=== PATIENT | male | born 1955 | race Two or more races ===

== ENCOUNTER 2020-07-15 18:21 | Inpatient (IN) | payer MEDICAID, OTHER ==
[~2020-07-15] VITALS: Ht 175.3 cm; Wt 91.9 kg
[2020-07-15 23:48] LABS: Basophils # (auto) 0 10 ^3/uL (0-0.2); Lymphocytes # (auto) 0.4 10 ^3/uL (0.4-5.4)
[2020-07-15 23:50] LABS: Basophils % (auto) 0.1 % (0.0-2.0); Eosinophils # (auto) 0 10 ^3/uL (0-0.8); Eosinophils % (auto) 0.3 % (0.0-7.0); Hematocrit 30.6 % (41.0-53.0); Hemoglobin 9.9 g/dL (13.5-17.5); Lymphocytes % (auto) 2.6 % (10.0-50.0); Mean Corpuscular Hemoglobin 26.5 pg (28.0-32.0); Mean Corpuscular Hgb Conc. 32.4 g/dL (32.0-36.0); Mean Corpuscular Volume 81.9 fL (80.0-100.0); Monocytes # (auto) 1.1 10 ^3/uL (0-1.3); Neutrophils # (auto) 14.3 10 ^3/uL (1.6-8.6); Platelet Count (auto) 164 10^3/uL (140-450); Red Blood Cells 3.73 10^6/uL (4.5-5.90); Red Cell Distribution Width 16.3 % (11.8-14.3); White Blood Cell 15.9 10^3/uL (4.4-10.8)
[2020-07-16 00:03] LABS: INR 1.12 (0.9-1.15); Partial Thromboplastin Time 30.4 sec (23.0-31.2)
[2020-07-16 00:09] LABS: Alanine Aminotransferase 10 U/L (16-61); Albumin 2.9 g/dL (3.4-5.0); Anion Gap 14 (5-15); Aspartate Aminotransferase 9 U/L (15-37); BUN/Creatinine Ratio 6.1; Calcium 6.5 mg/dL (8.5-10.1); Carbon Dioxide 19 mmol/L (21-32); Chloride 105 mmol/L (98-107); GFR African American 4 mL/min; GFR Non-African American 3 mL/min; Glucose 78 mg/dL (74-106); Magnesium 1.9 mg/dL (1.6-2.6); Potassium 5.3 mmol/L (3.5-5.1); Sodium 138 mmol/L (136-145)
[2020-07-16 00:15] LABS: Alkaline Phosphatase 83 U/L (45-117); Bilirubin, Total 0.8 mg/dL (0.2-1.0); Total Protein 8.1 g/dL (6.4-8.2)
[2020-07-16 00:19] LABS: Blood Urea Nitrogen 105 mg/dL (7-18)
[2020-07-16] MEDS ORDERED: CALCIUM GLUC 4.65meq/50ml D5AE 50 ML IV ONE (10:15)
[2020-07-16] MEDS ORDERED: ALBUTEROL SULF 2.5 MG/0.5ML(0.5%) NEB SOLN NEB ONE (10:15)
[2020-07-16] MEDS ORDERED: SODIUM ZIRCONIUM CYCL 10 GM PAK PO ONE ×2 (10:15→21:00)
[2020-07-16] MEDS ORDERED: FUROSEMIDE 20 MG/2 ML VIAL IV ONE (10:15)
[2020-07-16] MEDS ORDERED: SODIUM BICARBONATE 8.4% INJ 50ML SYRINGE IV ONE (10:15)
[2020-07-16] MEDS ORDERED: ATORVASTATIN 20 MG TAB PO ONE (17:00)
[2020-07-16] MEDS ORDERED: ACETAMINOPHEN 325 MG TAB PO PRN (17:00)
[2020-07-16] MEDS ORDERED: MORPHINE SULF INJ 2 MG/ML SYRINGE 1ML IV PRN ×2 (17:00)
[2020-07-16] MEDS ORDERED: NITROGLYCERIN 0.4 MG SL TAB SL PRN (17:00)
[2020-07-16] MEDS ORDERED: CLOPIDOGREL BISULFATE 75 MG TAB PO ONE (17:00)
[2020-07-16] MEDS ORDERED: HYDROcodone-ACET 5/325MG TAB PO PRN (17:00)
[2020-07-16] MEDS ORDERED: DEXTROSE (50%) 50ML SYRG IV PRN (17:15)
--- NOTE | 2020-07-16 19:50 | NUR ---
Patient arrived to room 290B Transported by stretcher. Patient A&Ox4, respirations even and non-labored without s/s of distress at this time. Patient on RA, VS: T 97.5, UT 85, RR 20, 99% SpO2, 165/92, 0/10 pain. Noted multiple wounds to BLE and sacral area, pictures taken. Patient stated that he had a prior surgery to his feet in 2012 and the edema was normal for him. Dialysis catheter to the left upper chest. Patient unable to discuss his medications stating that he did not feel like talking about them. Oriented patient to the room, call light, bed, POC and to call for assistance. Patient verbalized understanding, bed alarm in place. Bed in lowest locked position with 3 side rails up, call light within reach. Will continue to monitor Q1hr and PRN.
[2020-07-16 20:00] VITALS: BP 165/92
--- NOTE | 2020-07-16 20:28 | NUR ---
Critical lab Potassium 5.8 Will notify physician.
--- NOTE | 2020-07-16 20:33 | NUR ---
Dawna hospitalist for critical lab
--- NOTE | 2020-07-16 20:50 | NUR ---
Hospitalist returned call Order received and implemented.
[2020-07-16] MEDS: InsuLIN REG 1unit/0.01ml Soln (100units/ml) SC SCH (22:00)
[2020-07-16] MEDS: ACCU-CHEK COMFORT CURVE STRIP VI SCH (22:13)
[2020-07-16 23:55] LABS: Cholesterol 83 mg/dL (< 200); HDL Cholesterol 19 mg/dL (40-59); LDL Cholesterol 47 mg/dL (< 100); Triglycerides 109 mg/dL (< 150)
[2020-07-17 05:31] VITALS: BP 168/93
--- NOTE | 2020-07-17 05:57 | NUR ---
[facility] Called Notified of dialysis this morning.
--- NOTE | 2020-07-17 06:59 | NUR ---
MRSA/wound culture swabs sent to lab
[2020-07-17] MEDS: ACCU-CHEK COMFORT CURVE STRIP VI SCH ×4 (07:00→21:52)
[2020-07-17] MEDS: InsuLIN REG 1unit/0.01ml Soln (100units/ml) SC SCH ×4 (07:00→21:52)
--- NOTE | 2020-07-17 07:20 | NUR ---
Opening Shift Note: Assumed care of patient. Patient asleep at this time. No S/S of distress/SOB or pain. ross lift operator at bedside. Bed in lowest locked position, side rails up x 2, call light within reach. Bed alarm activated for patient safety. Patient instructed on POC and to call for assist PRN, will continue to monitor for changes Q1hr and PRN.
[2020-07-17 09:00] VITALS: BP 139/85
[2020-07-17] MEDS ORDERED: SODIUM CHL 0.9% 1000 ML BAG XX ONE (09:30)
--- NOTE | 2020-07-17 10:28 | NUR ---
PATIENT OFF UNIT FOR MRI. NO DISTRESS NOTED.
[2020-07-17] MEDS ORDERED: CLOPIDOGREL BISULFATE 75 MG TAB PO ONE (10:45)
--- NOTE | 2020-07-17 11:05 | NUR ---
PATIENT BACK TO UNIT FROM MRI.
[2020-07-17] MEDS: ASPirin-EC 81 mg tab PO SCH (11:27)
--- NOTE | 2020-07-17 12:01 | NUR ---
Nutrition Consult for wounds Consider adding Nephrovite and Vitamin C 500 mg BID Consider CCHO 60g and renal standard diet Est energy needs kcal (20-22 kcal/kg BW 96.4kg) est protein needs 95-110g (1.3-1.5g/kg IBW 73kg r/t ESRD on HD, Obesity) Will monitor and reassess prn. Addendum: 07/17/20 at [address]4 [address]A H[address] Amended: Links added.
[2020-07-17 12:31] VITALS: BP 181/80
--- NOTE | 2020-07-17 12:50 | NUR ---
DIRECTOR MUSEUM OR ZOO AT BEDSIDE.
--- NOTE | 2020-07-17 13:00 | NUR ---
WOUND CARE NOTE: IN TO SEE PATIENT AT THIS TIME PER WOUND CARE CONSULT REQUEST. PATIENT ADMITTED TO [facility] WITH DIAGNOSIS OF ALOC. PATIENT NOTED TO HAVE WOUNDS UPON ADMIT. WOUNDS PHOTOGRAPHED AT THAT TIME BY BEDSIDE NURSE FOR REFERENCE. CURRENT MAXIMILIAN SCORE IS 16. SKIN/WOUND CARE PLAN IMPLEMENTED. PATIENT IS NOTED TO BE LETHARGIC, DIFFICULT TO AROUSE, UNABLE TO GIVE HISTORY. HE IS NOTED TO HAVE A COLLAGEN SCAR TO THE COCCYX. SKIN IS INTACT, PALE PINK SCAR. APPLIED OPTIFOAM GENTLE SACRAL DRESSING. RIGHT # 1 TOE AND LEFT PLANTAR HEEL HAVE DFU ULCERS NOTED. LEFT HEEL ULCER IS CALLOUSED CLOSED, LEFT OPEN TO AIR. RIGHT HALLUX HAS 2.5 X 5 CM OPEN DFU, NO DISCERNIBLE DEPTH. APPLIED THERAHONEY GAUZE, OPTIFOAM AG, WRAPPED WITH LARGE KERLIX, STOCKINETTE. RECOMMEND: FREQUENT TURN SCHEDULE Q 2 HOURS, PRN CONDITION PERMITS, WITH PRESSURE REDISTRIBUTION USING PILLOWS/WEDGES, BID/PRN APPLICATION WITH MOISTURE BARRIER CREAM, OPTIFOAM GENTLE SACRAL DRESSING; EOD/PRN DRESSING CHANGE TO RIGHT # 1 TOE WOUND, ELEVATION OF FOOT UP FOR EDEMA CONTROL, SKIN/WOUND CARE PLAN, CONTINUED MONITORING BY WOUND CARE TEAM. Addendum: 07/17/20 at 1910 by Leesa Wynn RN Amended: Links added.
--- NOTE | 2020-07-17 13:34 | NUR ---
PATIENT CLEANED AND TURNED AT THIS TIME. PATIENT ASSISTED WITH LUNCH.
[2020-07-17 15:23] LABS: Basophils # (auto) 0 10 ^3/uL (0-0.2); Basophils % (auto) 0.2 % (0.0-2.0); Eosinophils # (auto) 0.1 10 ^3/uL (0-0.8); Eosinophils % (auto) 0.7 % (0.0-7.0); Hematocrit 30.1 % (41.0-53.0); Lymphocytes # (auto) 0.6 10 ^3/uL (0.4-5.4); Lymphocytes % (auto) 5.3 % (10.0-50.0); Mean Corpuscular Hgb Conc. 33.2 g/dL (32.0-36.0); Mean Corpuscular Volume 81.2 fL (80.0-100.0); Monocytes # (auto) 0.8 10 ^3/uL (0-1.3); Monocytes % (auto) 7.8 % (0.0-12.0); Neutrophils # (auto) 9.4 10 ^3/uL (1.6-8.6); Platelet Count (auto) 142 10^3/uL (140-450); Red Blood Cells 3.71 10^6/uL (4.5-5.90); Red Cell Distribution Width 16.4 % (11.8-14.3); White Blood Cell 10.9 10^3/uL (4.4-10.8)
[2020-07-17 15:38] LABS: Magnesium 2.3 mg/dL (1.6-2.6); Potassium 4.5 mmol/L (3.5-5.1)
--- NOTE | 2020-07-17 15:45 | NUR ---
RECEIVED CALL FROM LAB. CRITICAL LAB. PAGED DR. CHAVIRA AT THIS TIME. Addendum: 07/17/20 at 1600 by JEREMIAH NORIEGA RN RN RECEIVED CALL FROM DR. CHAVIRA. DR. FISHER OF CRITICAL BUN AND CREATININE.
[2020-07-17] MEDS: cefTRIAXone 1GM/50ML D5W 50 ML IV SCH (16:15)
[2020-07-17 16:55] VITALS: BP 155/80
--- NOTE | 2020-07-17 17:07 | NUR ---
PAGED AT THIS TIME REGARDING PATIENTS BLOOD PRESSURE. NEW ORDERS RECEIVED, READ BACK AND VERIFIED.
[2020-07-17] MEDS: hydrALAZINE HCL 20 MG/ML VL IV PRN (17:31)
--- NOTE | 2020-07-17 18:40 | NUR ---
CLOSING NOTE: PATIENT ASLEEP AT THIS TIME. NO S/S OF DISTRESS.
--- NOTE | 2020-07-17 19:30 | NUR ---
ASSUMED CARE, PT. AWAKE, NO C/O PAIN, NO SOB.
[2020-07-17] MEDS ORDERED: EPOETIN ALFA 10,000 UNIT/1 ML VIAL SC ONE (21:00)
--- NOTE | 2020-07-17 22:00 | NUR ---
PT. REFUSED V/S, EXPLAINED TO PT. THE IMPORTANCE, PT. STILL REFUSING.
[2020-07-18 05:00] VITALS: BP 169/89
[2020-07-18] MEDS: hydrALAZINE HCL 20 MG/ML VL IV PRN ×2 (05:31→22:05)
[2020-07-18] MEDS: InsuLIN REG 1unit/0.01ml Soln (100units/ml) SC SCH ×4 (06:05→21:31)
[2020-07-18] MEDS: ACCU-CHEK COMFORT CURVE STRIP VI SCH ×4 (06:06→21:31)
--- NOTE | 2020-07-18 07:20 | NUR ---
Opening Shift Note: Assumed care of patient. Asleep at this time. No S/S of distress/SOB or pain. Bed in lowest locked position, side rails up x 2, call light within reach. Patient will be instructed on POC and to call for assist PRN, will continue to monitor for changes Q1hr and PRN.
[2020-07-18 09:00] VITALS: BP 155/75
[2020-07-18] MEDS: cefTRIAXone 1GM/50ML D5W 50 ML IV SCH (09:00)
--- NOTE | 2020-07-18 09:01 | NUR ---
ATTEMPTED TO START IV ANTIBIOTICS AT THIS TIME. PATIENT PARTIALLY PULLED OUT IV. WHEN EDUCATED ON NEED FOR IV AT THIS TIME PATIENT STATES "I DON'T WANT ANOTHER ONE, I JUST WANT TO GO HOME." PATIENT EDUCATED ON DISCHARGE PROCESS AND PATIENT STATES "I DON'T THINK I WANT TO WAIT FOR THE DR." PATIENT WAS ASKED IF THERE WAS ANYONE AT HOME TO CARE FOR HIM IF HE DECIDED TO LEAVE AMA. PER PATIENT "I HAVE NURSES AT HOME TO CARE FOR ME."
[2020-07-18] MEDS: CLOPIDOGREL BISULFATE 75 MG TAB PO SCH (09:05)
[2020-07-18] MEDS: ASPirin-EC 81 mg tab PO SCH (09:05)
--- NOTE | 2020-07-18 09:10 | NUR ---
IV removal IV DC'd with clean sterile technique, catheter fully intact. Pressure dressing applied to site. Patient tolerated well.
--- NOTE | 2020-07-18 09:18 | NUR ---
BP AT THIS TIME IS 155/75. NO IV ACCESS FOR PRN BP MEDICATIONS. PATIENT EDUCATED AGAIN ON NEED FOR IV AND PATIENT REFUSED AT THIS TIME.
--- NOTE | 2020-07-18 09:41 | NUR ---
DR. MAJANO: AT BEDSIDE.
--- NOTE | 2020-07-18 10:00 | NUR ---
PATIENT IN BEDSIDE CHAIR WITH PHYSICAL THERAPY.
--- NOTE | 2020-07-18 11:13 | NUR ---
PATIENT GOT HIMSELF BACK IN BED AT THIS TIME. PATIENT STATES "I DON'T WANT TO BE HERE, NO DR HAS SEEN ME." PATIENT EDUCATED ON THE RISK OF AN AMA AT THIS TIME.
--- NOTE | 2020-07-18 12:29 | NUR ---
PATIENT SLEEPING AT THIS TIME. NO S/S OF DISTRESS. WILL CONTINUE TO MONITOR.
[2020-07-18 13:00] VITALS: BP 151/68
--- NOTE | 2020-07-18 15:14 | NUR ---
SPOKE WITH PATIENT REGARDING MD WISHES FOR PATIENT TO STAY AND RECEIVED TREATMENT. PATIENT AGREED AT THIS TIME TO STAY. PATIENT EDUCATED ON NEED FOR IV AND WOUND CARE. PATIENT REFUSED BOTH, AND STATES "MAYBE IN A LITTLE BIT." PATIENT EDUCATED THE IMPORTANCE OF IV AT THIS TIME. PATIENT CONTINUE TO REFUSED.
[2020-07-18 17:00] VITALS: BP 145/62
--- NOTE | 2020-07-18 17:00 | NUR ---
IV insertion: IV access obtained, via clean sterile technique by inserting 20 gauge catheter at right AC after 2 attempts. IV secured properly. No trauma to site. Patient tolerated well.
--- NOTE | 2020-07-18 17:19 | NUR ---
WOUND CARE PERFORMED PER ORDERS. PATIENT TOLERATED WELL.
--- NOTE | 2020-07-18 18:47 | NUR ---
CLOSING NOTE: PATIENT RESTING IN BED. NO S/S OF DISTRESS.
--- NOTE | 2020-07-18 19:25 | NUR ---
OPENING SHIFT NOTE Assumed care of patient who is ALOCx2/3. Patient is currently on RA with no S/S of distress or SOB noted at this time. Patient is legally blind, call light is within reach and patient is encouraged to call for assistance as needed. POC discussed with patient, all questions answered, will reinforce POC. Bed is locked in lowest position, side rails up x3, bed alarm is on. Will continue to monitor PRN/Q1hr.
[2020-07-18 22:00] VITALS: BP 180/97
[2020-07-19 05:00] VITALS: BP 159/92
[2020-07-19] MEDS: ACCU-CHEK COMFORT CURVE STRIP VI SCH ×4 (06:30→21:22)
[2020-07-19] MEDS: InsuLIN REG 1unit/0.01ml Soln (100units/ml) SC SCH ×4 (06:30→21:21)
[2020-07-19] MEDS: hydrALAZINE HCL 20 MG/ML VL IV PRN (06:31)
--- NOTE | 2020-07-19 07:44 | NUR ---
CARE ENDORSED TO DAY SHIFT RN
[2020-07-19 08:00] VITALS: BP 133/71
--- NOTE | 2020-07-19 08:18 | NUR ---
Patient's morning vital signs stable. patient is resting, nonawake, but arousable. denies any pain. bed alarm on, instructed patient to call for assistance when getting out of the bed. call light within reach. will continue to monitor patient.
[2020-07-19] MEDS: cefTRIAXone 1GM/50ML D5W 50 ML IV SCH (09:00)
[2020-07-19] MEDS: ASPirin-EC 81 mg tab PO SCH (09:38)
[2020-07-19] MEDS: CLOPIDOGREL BISULFATE 75 MG TAB PO SCH (09:39)
[2020-07-19 12:00] VITALS: BP 149/75
[2020-07-19 12:07] LABS: Folate (Folic Acid) 1.72 ng/mL (5.38-24)
[2020-07-19] MEDS ORDERED: SODIUM CHL 0.9% 1000 ML BAG XX ONE (15:45)
--- NOTE | 2020-07-19 16:30 | NUR ---
Pt is an alert but confused male that is legally blind and was admitted altered mental status from his dialysis center. Due to pt's poor cognition contacted [employer] and spoke with Vasiliy [facility] bilingual case manager regarding additional information on patient. Pt has not been in a SNF since December of 2019 and it was at [facility]. Pt has been on [facility] prior to hospitalization for wound care. Per Home health nurse pt lives alone and has an [employer] caregiver that comes in daily. Pt receives dialysis at [facility] in [place] on Sunday, , and Saturdays and is transported by [place] non emergent transport through [facility]. Will continue to monitor pt's progress with therapy and followup with provider regarding wound care to assess discharge planning to SNF vs. Home with Home Health. Additionally, will make contact with pt's sister, Nichole, that resides in [place] ( [phone]) for assistance in completing discharge planning. Addendum: 07/19/20 at 1637 by YUNIOR WASHINGTON Amended: Links added.
[2020-07-19 17:00] VITALS: BP 115/62
--- NOTE | 2020-07-19 18:37 | NUR ---
System was down from 1030 to 1500. patient has been drawsy for most of the time, but arousable. Patient's blood sugar was 77 at noon, encouraged PO intake and juices, patient was able to eat about 95% of lunch and drank the while bottle of milk. patient has one episode of 7 beats of ventricular tachycardia at around 1413, paged Dr. Edwards at [phone] and left a message. Did not received any response, so paged him again at [phone] and left a message. Dr. Edwards called back at 1707 and was aware of the episode of V. tach. he gave verbal order of BMP, Magnesium and cardiology counsul with Dr. Odom. Orders placed per telephone order. Patient had dialysis starting at 1310 and finished at 1650, per life cycle assessment analyst report after the dialysis, patient had one episode of light headedness during dialysis, BP was 103/64, patient got 100ml of normal saline. Educated patient on risks of skin break down. turned patient Q2hr and keeps skin dry and clean, elevated bilateral heels on pillow.
--- NOTE | 2020-07-19 18:46 | NUR ---
Patient's conseulo cath on left chest, dressing was loose, changed dressing at noon per protocol.
--- NOTE | 2020-07-19 20:00 | NUR ---
Opening Shift Note Assumed care of patient, awake and alert. No S/S of distress/SOB or pain. Instructed on POC and to call for assist PRN, will continue to monitor for changes Q1hr and PRN.Dressing in the right foot dry and intact.
[2020-07-19 20:51] LABS: BUN/Creatinine Ratio 6.2; Calcium 6.7 mg/dL (8.5-10.1); Magnesium 2.3 mg/dL (1.6-2.6); Potassium 4.8 mmol/L (3.5-5.1)
[2020-07-19] MEDS ORDERED: CYANOCOBALAMIN (B-12) 1000 MCG/1 ML VIAL IM ONE (21:45)
[2020-07-19] MEDS: FOLIC ACID 1 MG in D5W 5% 50 ML INJ SCH (22:06)
[2020-07-19 23:52] VITALS: BP 141/69
--- NOTE | 2020-07-20 04:21 | NUR ---
Refused vital signs, does nt want to be disturb, wants to sleep .
[2020-07-20 05:41] VITALS: BP 155/72
[2020-07-20] MEDS: InsuLIN REG 1unit/0.01ml Soln (100units/ml) SC SCH ×2 (06:20→11:30)
[2020-07-20] MEDS: ACCU-CHEK COMFORT CURVE STRIP VI SCH ×2 (06:21→13:55)
[2020-07-20 06:31] LABS: Basophils # (auto) 0 10 ^3/uL (0-0.2); Eosinophils # (auto) 0.2 10 ^3/uL (0-0.8); Monocytes # (auto) 1.4 10 ^3/uL (0-1.3)
[2020-07-20 06:33] LABS: Basophils % (auto) 0.3 % (0.0-2.0); Eosinophils % (auto) 1.5 % (0.0-7.0); Hematocrit 30.8 % (41.0-53.0); Hemoglobin 9.9 g/dL (13.5-17.5); Lymphocytes # (auto) 1.6 10 ^3/uL (0.4-5.4); Lymphocytes % (auto) 11.7 % (10.0-50.0); Mean Corpuscular Hemoglobin 26.3 pg (28.0-32.0); Mean Corpuscular Hgb Conc. 32.2 g/dL (32.0-36.0); Mean Corpuscular Volume 81.7 fL (80.0-100.0); Monocytes % (auto) 10.5 % (0.0-12.0); Neutrophils # (auto) 10.4 10 ^3/uL (1.6-8.6); Platelet Count (auto) 119 10^3/uL (140-450); Red Blood Cells 3.78 10^6/uL (4.5-5.90); Red Cell Distribution Width 15.8 % (11.8-14.3); White Blood Cell 13.7 10^3/uL (4.4-10.8)
[2020-07-20 06:41] LABS: Potassium 4.1 mmol/L (3.5-5.1)
[2020-07-20 06:56] LABS: Albumin 2.7 g/dL (3.4-5.0); BUN/Creatinine Ratio 4.8; Bilirubin, Total 0.4 mg/dL (0.2-1.0); Calcium 6.9 mg/dL (8.5-10.1); Magnesium 2.3 mg/dL (1.6-2.6)
[2020-07-20] MEDS ORDERED: SODIUM CHL 0.9% 1000 ML BAG XX ONE (07:00)
--- NOTE | 2020-07-20 07:00 | NUR ---
OPENING SHIFT NOTE RECEIVED REPORT ON THE PATIENT. AWAKE LYING IN BED. PATIENT SHOWS NO SIGNS OF DISTRESS AT THIS TIME. DISCUSSED THE PLAN OF CARE WITH THE PATIENT. BED IN LOWEST POSITION, SIDE RAILS UP X2, AND THE CALL LIGHT IS WITHIN REACH.
--- NOTE | 2020-07-20 07:15 | NUR ---
Report given to Patricio Cárdenas, patient is resting no distress.
[2020-07-20 09:00] VITALS: BP 111/74
[2020-07-20] MEDS: FOLIC ACID 1 MG in D5W 5% 50 ML INJ SCH (10:00)
[2020-07-20] MEDS ORDERED: CYANOCOBALAMIN 500 MCG TAB PO SCH (10:00)
[2020-07-20] MEDS: cefTRIAXone 1GM/50ML D5W 50 ML IV SCH (11:08)
[2020-07-20] MEDS: ASPirin-EC 81 mg tab PO SCH (11:08)
[2020-07-20] MEDS: CLOPIDOGREL BISULFATE 75 MG TAB PO SCH (11:09)
[2020-07-20] MEDS ORDERED: VANCOMYCIN PER PHARMACY 0 MG IV SCH (11:15)
[2020-07-20] MEDS ORDERED: VANCOMYCIN 1,250 MG in D5W 5% 250 ML IV ONE (12:00)
--- NOTE | 2020-07-20 12:24 | NUR ---
Pt refused PT tx. RN informed. Addendum: 07/20/20 at 1225 by Dann Padilla FREIGHT CLAIM INVESTIGATOR Amended: Links added.
[2020-07-20 13:00] VITALS: BP 123/80
[2020-07-20 15:38] VITALS: BP 123/80
--- NOTE | 2020-07-20 15:55 | NUR ---
D/C Planning Regarding social service consult for transportation home and home health service for safety evaluation and physical therapy. clinical information was faxed to [facility]. Per Carmencita with [facility] patient has been accepted and service to start within 24-48hrs upon d/c day. Transportation form request was faxed to [facility] requesting for a 17:00 chart picker time via [employer]. Per Sasha with [facility], transportation has been arranged with [employer] with a 17:00 chart picker time. Informed BOOGIE Cárdenas.
--- NOTE | 2020-07-20 16:00 | NUR ---
Obtain authorization from [facility] for [facility] [id number].
[2020-07-20] MEDS ORDERED: EPOETIN ALFA 4,000 UNIT/ML VL SC ONE (21:00)
[2020-07-21] MEDS ORDERED: SODIUM CHL 0.9% 1000 ML BAG XX ONE (07:00)
[2020-07-21] MEDS ORDERED: EPOETIN ALFA 10,000 UNIT/1 ML VIAL SC ONE (21:00)
== END 2020-07-20 17:19 | disposition home health service (06) | DRG 720 ==
LOC: EDBD 18:21 → ER 18:21 → OVERFLOW 18:22 → TELE-WESTW 07-16 23:40 → TELE-CENTR 07-19 21:41
PROVIDERS: ADMIT Internal Medicine; ATTEND Internal Medicine
PROC: 5A1D70Z Performance of Urinary Filtration, Intermittent, Less than 6 Hours Per Day (ICD-10-PCS; principal; 2020-07-17)
PROC: 5A1D70Z Performance of Urinary Filtration, Intermittent, Less than 6 Hours Per Day (ICD-10-PCS; 2020-07-19)
DX: A41.59 Other Gram-negative sepsis (principal); N18.6 End stage renal disease; G92 Toxic encephalopathy; I13.2 Hypertensive heart and chronic kidney disease with heart failure and with stage 5 chronic kidney disease, or end stage renal disease; E11.22 Type 2 diabetes mellitus with diabetic chronic kidney disease; G30.9 Alzheimer's disease, unspecified; E78.5 Hyperlipidemia, unspecified; D64.9 Anemia, unspecified; Z99.2 Dependence on renal dialysis; E11.40 Type 2 diabetes mellitus with diabetic neuropathy, unspecified; E53.8 Deficiency of other specified B group vitamins; F02.80 Dementia in other diseases classified elsewhere, unspecified severity, without behavioral disturbance, psychotic disturbance, mood disturbance, and anxiety; I50.9 Heart failure, unspecified; I65.23 Occlusion and stenosis of bilateral carotid arteries; I67.2 Cerebral atherosclerosis; I82.C13 Acute embolism and thrombosis of internal jugular vein, bilateral; Z20.828 Contact with and (suspected) exposure to other viral communicable diseases; Z79.82 Long term (current) use of aspirin; Z79.899 Other long term (current) drug therapy; Z80.3 Family history of malignant neoplasm of breast; Z82.0 Family history of epilepsy and other diseases of the nervous system; Y90.0 Blood alcohol level of less than 20 mg/100 ml
CPT/HCPCS: 36415; 70450; 70545; 70551; 71045; 80048; 80053; 80061; 80320; 82306; 82607; 82746; 82962; 83605; 83735; 83880; 83970; 84100; 84132; 84443; 84484; 85025; 85610; 85730; 87040; 87077; 87081; 87186; 87205; 87426; 90935; 93005; 93306; 93886; 96365; 96375; G0378; J0610; J0696; J0885; J7060